=== PATIENT | female | born 2000 | race Caucasian/White ===

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

== ENCOUNTER 2019-04-14 07:42 | Outpatient (CLI) | payer MEDICAID ==
[2019-04-17 04:56] LABS: PROGESTERONE 1.7 ng/mL
== END 2019-04-14 07:43 | disposition home or self-care (01) ==
LOC: LAB 07:42
PROVIDERS: ATTEND Naturopath
DX: N92.6 Irregular menstruation, unspecified (principal); N94.3 Premenstrual tension syndrome; E61.1 Iron deficiency
CPT/HCPCS: 36415; 82670; 82728; 84144

== ENCOUNTER 2021-12-15 08:00 | Outpatient (CLI) | payer BC, MEDICAID | END 2021-12-15 23:59 | disposition home or self-care (01) | LOC: LAB.S 08:00 | PROVIDERS: ATTEND Physician Assistant Medical | DX: R05.9 Cough, unspecified (principal); Z20.822 Contact with and (suspected) exposure to COVID-19 ==